=== PATIENT | female | born 1985 | race Caucasian/White ===

== ENCOUNTER 2017-01-11 15:58 | Emergency (ER) | payer BC, MEDICARE, OTHER ==
[~2017-01-11] VITALS: Ht 157.5 cm; Wt 60.3 kg
[~2017-01-11 15:58] MED LIST: AMPH10TA2 PO; AMPH20CA3 PO; BCPILLS PO
[2017-01-11 16:17] VITALS: PULSE 86; Ht 157.5 cm; Wt 60.3 kg
[2017-01-11] MEDS ORDERED: ACETAMINOPHEN 500 MG TAB PO STA (16:28)
[2017-01-11] MEDS ORDERED: MoRPHine SULFATE 4 MG/ML 1 ML CARP\\VIAL IV STA (16:28)
[2017-01-11] MEDS ORDERED: SODIUM CHLORIDE 0.9% 1000ML 1,000 ML IV STA (16:28)
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
[2017-01-11] MEDS ORDERED: OPTIRAY 320 IV PRN (16:45)
[2017-01-11 17:09] LABS: BASO % 0.2 %; BASO ABS # 0.03 K/uL (0-0.2); COMPLETE YES; EOS % 0.7 %; HEMATOCRIT 39.6 % (37-47); IG% 0.3 %; LYMPH % 18.2 %; LYMPH ABS # 2.25 K/uL (1.2-3.4); MEAN CORPUSCULAR HEMOGLOBIN 29.4 pg (25-34); MEAN CORPUSCULAR HGB CONC 34.6 g/dl (32-36); MEAN PLATELET VOLUME 10.7 fL (7.4-10.4); MONO % 4.4 %; NEUT % 76.2 %; PLATELET COUNT 300 K/uL (130-400); RED BLOOD COUNT 4.66 M/uL (4.2-5.4); WHITE BLOOD COUNT 12.36 K/uL (4.8-10.8)
[2017-01-11 17:24] LABS: INR 0.9 (0.9-1.1); PROTHROMBIN TIME (PATIENT) 9.9 SECONDS (9.0-12.0)
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
[2017-01-11 17:56] LABS: BUN/CREATININE RATIO 12.9 (10-20); CALCIUM 9.8 mg/dl (8.5-10.1); CREATININE 0.85 mg/dl (0.60-1.20); POTASSIUM 3.7 mmol/L (3.5-5.1)
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
[2017-01-11] MEDS ORDERED: KETOROLAC TROMETHAMINE 30 MG/ML VIAL IV STA (18:30)
[2017-01-11] MEDS ORDERED: TRAMADOL HCL 50 MG HOME PACK PO ONE (18:30)
[2017-01-11] MEDS ORDERED: TRAMADOL HCL 50 MG TAB PO STA (18:30)
[2017-01-11] MEDS ORDERED: TRAM-10 PO (18:33)
[2017-01-11 18:52] VITALS: BP 133/70; O2SAT 98
== END 2017-01-11 18:55 | disposition home or self-care (01) ==
LOC: EDBD 15:58 → C.EDA 15:59
DX: R07.9 Chest pain, unspecified (principal); V43.52XA Car driver injured in collision with other type car in traffic accident, initial encounter; Y92.488 Other paved roadways as the place of occurrence of the external cause; F90.9 Attention-deficit hyperactivity disorder, unspecified type; R00.0 Tachycardia, unspecified

== ENCOUNTER → 2017-01-26 | Outpatient (CLI) | payer OTHER, BC ==
[~2017-01-26] MED LIST changes: -AMPH10TA2 PO; -BCPILLS PO; +TRAM-10 PO
--- NOTE | 2017-01-26 19:39 | DIAGNOSTIC IMAGING REPORT ---
CHEST 2 VIEWS ROUTINE HISTORY: Atypical chest pain. COMPARISON: Chest 01/11/2017. FINDINGS: The lungs are clear. Cardiac silhouette is normal in size. No pleural effusions. No pneumothorax. IMPRESSION: No acute process. Electronically signed by: Hunter Mccabe M.D. 01/26/2017 7:37 PM Dictated Date/Time: 01/26/2017 7:36 PM
== END | disposition home or self-care (01) ==
LOC: C.RAD 19:13
PROVIDERS: ATTEND Family Medicine
DX: R07.9 Chest pain, unspecified (principal); V89.2XXD Person injured in unspecified motor-vehicle accident, traffic, subsequent encounter

== ENCOUNTER 2017-11-05 02:13 | Inpatient (IN) | payer BC ==
[~2017-11-05] VITALS: Ht 157.5 cm; Wt 77.6 kg
[~2017-11-05 02:13] MED LIST changes: -TRAM-10 PO
[2017-11-05] MEDS ORDERED: LACTATED RINGER'S 1000ML 1,000 ML IV PRN (06:14)
[2017-11-05] MEDS ORDERED: PENICILLIN G POTASSIUM IV 6 MU in DEXTROSE 5% 250ML 250 ML IV ONE (06:15)
[2017-11-05] MEDS ORDERED: BUTORPHANOL TARTRATE 1 MG/ML VIAL IV ONE (06:30)
[2017-11-05 06:32] VITALS: Ht 157.5 cm; Wt 77.6 kg
[2017-11-05] MEDS ORDERED: PRENTAB26 PO (06:32)
[2017-11-05] MEDS ORDERED: FERR1TAB23 (06:32)
[2017-11-05 06:34] LABS: HEMATOCRIT 39.3 % (37-47); HEMOGLOBIN 13.4 g/dL (12.0-16.0); MEAN CELL VOLUME 88.9 fL (80-100); MEAN CORPUSCULAR HEMOGLOBIN 30.3 pg (25-34); MEAN CORPUSCULAR HGB CONC 34.1 g/dl (32-36); MEAN PLATELET VOLUME 10.9 fL (7.4-10.4); PLATELET COUNT 239 K/uL (130-400); RED CELL DISTRIBUTION WIDTH CV 14.7 % (11.5-14.5); RED CELL DISTRIBUTION WIDTH SD 47.6 fL (36.4-46.3); WHITE BLOOD COUNT 11.13 K/uL (4.8-10.8)
[2017-11-05] MEDS: LACTATED RINGER'S 1000ML 1,000 ML IV SCH ×2 (06:57→12:49)
[2017-11-05] MEDS ORDERED: IV FLUIDS COMPLETED PRN (07:00)
[2017-11-05] MEDS: PENICILLIN G POTASSIUM IV 3 MU in DEXTROSE 5% 100ML 100 ML IV PRN ×2 (11:04→14:37)
[2017-11-05] MEDS ORDERED: BUPIVACAINE 0.25% 30 ML VIAL ONE (12:26)
[2017-11-05] MEDS ORDERED: FENTANYL CITRATE INJ 50 MCG/1 ML 2 ML VIAL ONE (12:26)
[2017-11-05] MEDS ORDERED: EpHEDrine SULFATE INJ 50 MG/ML AMP ONE (12:26)
[2017-11-05] MEDS ORDERED: FENTANYL 2MCG/ML ROPIV 1.25MG/ML 100ML BAG ONE (12:27)
[2017-11-05] MEDS ORDERED: LACTATED RINGER'S 1000ML 500 ML IV PRN ×2 (13:06→14:49)
[2017-11-05] MEDS ORDERED: NALOXONE HCL INJ 0.4 MG/1 ML VIAL/CARP IV PRN (13:15)
[2017-11-05] MEDS ORDERED: EpHEDrine SULFATE INJ 50 MG/ML AMP IV PRN (13:15)
[2017-11-05] MEDS ORDERED: FENTANYL 2MCG/ML ROPIV 1.25MG/ML 100ML BAG EPI PRN (13:15)
[2017-11-05] MEDS ORDERED: OXYTOCIN 30 UNITS/500ML NSS IV PRN ×2 (15:00→17:45)
[2017-11-05] MEDS ORDERED: OXYCODONE/ACETAMINOPHEN 5-325 TAB PO PRN (17:45)
[2017-11-05] MEDS ORDERED: ACETAMINOPHEN 325 MG TAB PO PRN (17:45)
[2017-11-05] MEDS ORDERED: SUPERCREAM 0.870 % 15GM JAR EXT PRN (17:45)
[2017-11-05] MEDS ORDERED: BENZOCAINE 20% AER SPR 82.5 GM CAN EXT PRN (17:45)
[2017-11-05] MEDS ORDERED: DIPHTHERIA/TETANUS/PERTUSSIS 0.5 ML SYR/VIAL IM. ONE (17:45)
[2017-11-05] MEDS ORDERED: LANOLIN OINT EXT PRN (17:45)
[2017-11-05] MEDS ORDERED: HYDROCORTISONE ACETATE 25 MG SUPP PR PRN (17:45)
--- NOTE | 2017-11-05 18:32 | Anesthesia Procedure Note ---
Anesthesia Epidural Removal Nt Date & Time Nov 05, 2017 at 18:32 Vital Signs Pain Intensity: 0.0 Notes Mental Status: alert / awake / arousable, participated in evaluation Nausea / Vomiting: adequately controlled Pain: adequately controlled Airway Patency, RR, SpO2: stable & adequate BP & HR: stable & adequate Hydration State: stable & adequate Neuraxial Anesthesia: was administered Anesthetic Complications: no major complications apparent, pt satisfied with anesthetic care Epidural: removed without complications, with tip intact
[2017-11-05] MEDS: IBUPROFEN 600 MG TAB PO PRN ×2 (19:10→23:39)
[2017-11-05 21:15] VITALS: BP 111/63; PULSE 98; TEMP 36.7
[2017-11-05] MEDS: DOCUSATE SODIUM 100 MG CAP PO SCH (21:53)
[2017-11-05 23:35] VITALS: BP 104/62; PULSE 93; TEMP 36.5
[2017-11-06] VITALS (7 sets, daily range): BP systolic 100–115; BP diastolic 59–66; PULSE 85–98; TEMP 36.3–36.8; O2SAT 98–99
[2017-11-06] MEDS: IBUPROFEN 600 MG TAB PO PRN ×2 (03:36→14:24)
--- NOTE | 2017-11-06 05:17 | DELIVERY SUMMARY ---
DATE OF OPERATION: 11/05/2017 DATE OF DELIVERY: 11/05/2017. TIME OF DELIVERY: 173. DELIVERY OF PLACENTA: 173. DELIVERY NOTE: The patient is a 31-year-old 3 para 2 at 40 weeks gestation who was admitted to labor and delivery on the morning of 11/05/2017 in active labor. On admission, she was found to be 4 cm, 78% effaced, and -2 station. Her care was uneventful. She is GBS positive and was given penicillin for GBS prophylaxis. Artificial rupture of membranes was performed at 1350 with a large amount of clear amniotic fluid. She received Pitocin for labor augmentation and reached complete dilation at 1727. Patient pushed to delivery. At 1736, she delivered a viable female in the left occiput anterior position to an intact perineum. The baby was delivered and placed on the patient's abdomen. Cord was clamped x2 and cut. Apgars were 8 at 1 minute and 9 at 5 minutes; please see nursing notes for further baby assessment. Cord blood was then obtained. Intact placenta with 3-vessel cord was delivered at 1739. Oxytocin infusion was then begun. The lower uterine segment and vagina was cleared of any blood clots and debris. Exploration of the perineum noted no laceration. Estimated blood loss was 300 mL. All sponge and instrument counts were found to be correct x2. Both patient and baby tolerated the delivery well and were in recovery with stable vital signs. I attest to the content of the Intraoperative Record and any orders documented therein. Any exception s are noted below.
[2017-11-06] MEDS: DOCUSATE SODIUM 100 MG CAP PO SCH ×2 (08:04→19:55)
[2017-11-06] MEDS: AMPHETAMINE ASP/SULF/DEXTRAMPH ER 20 MG CAP PO SCH (08:04)
[2017-11-06] MEDS: FERROUS SULFATE 325 MG TAB PO SCH (08:06)
[2017-11-06] MEDS: PRENATAL VITAMIN TAB PO SCH (08:07)
[2017-11-06 08:19] LABS: HEMATOCRIT 33.4 % (37-47); HEMOGLOBIN 11.4 g/dL (12.0-16.0)
--- NOTE | 2017-11-06 09:04 | OB/GYN Progress Note ---
SOLUTION DEVELOPER Progress Note Date of Service: Nov 06, 2017. Patient is seen and examined. She feels well, no complaints. Ambulating without dizziness Voiding without difficulty Tolerating regular diet with out N&V Bleeding is minimal No fever/ chills/ CP/ SOB/ N&V/ Leg pain Breast feeding without problems Date Time Temp Pulse Resp B/P (MAP) Pulse Ox O2 Delivery O2 Flow Rate FiO2 11/06/17 04:25 36.3 98 18 100/60 (73) 98 Room Air 11/05/17 23:35 Room Air 11/05/17 23:35 36.5 93 18 104/62 (76) Room Air 11/05/17 21:15 Room Air 11/05/17 21:15 36.7 98 18 111/63 (79) Room Air Last 24 Hours Test 11/06/17 07:48 Hemoglobin 11.4 g/dL Hematocrit 33.4 % PE: General: Alert, orientedx3, NAD Abd: soft, NT, fundus firm, below Umbilicus Perineum intact, Lochia rubra minimal Ext; NT, no edema AP: 31 yo s/p , ppd# 1 VSS Afebrile doing well Continue routine care All questions were answered D/C home tomorrow
--- NOTE | 2017-11-06 09:06 | Discharge Instructions ---
Discharge Instructions Date of Service Nov 06, 2017. Admission Reason for Admission: Check Labor Discharge Discharge Diagnosis / Problem: Discharge Goals Goal(s): Routine recovery after delivery Medications Continue Dispensed Medications: lansinoh, other Activity Recommendations Activity Limitations: as noted below ACTIVITY RECOMMENDATIONS: * Gradual return to full activity over the next 2-3 weeks. * No lifting - nothing heavier than baby over the next 2-3 weeks. * Do not engage in vigorous exercise, sexual activity or sports until cleared by your physician. * Do not drive or operate any motorized equipment until cleared by your physician. * You may shower/bathe daily. BREAST CARE: If you are not breast feeding: * Wear a supportive bra 24 hours a day for one to two weeks. * Avoid stimulating your breasts and nipples as much as possible during the first few weeks after delivery. * When taking a shower, have the warm water hit your back, not breasts. * When your breasts feel full, apply ice packs. Usually three to four times a day helps ease the discomfort. * Take a mild pain medication (Tylenol/Motrin) when you are uncomfortable. If breast feeding: * Use breast milk to lubricate nipples. Lansinoh cream may be used for sore nipples. You do not need to remove cream prior to breast feeding. If using a different brand of cream, check the label for directions regarding removal of cream prior to nursing. * Wear a supportive bra. * If having problems with breasts or breast feeding, call a oracle consultant or your health care provider. EPISIOTOMY CARE: After delivery, if you have an episiotomy (stitches), the following steps will ease discomfort and aid healing. * For the first 24 hours after delivery, place ice packs next to your episiotomy to help reduce swelling. * After the first 24 hour-period, sitz baths, either portable or in the tub, are suggested. A shower with a shower arm sprayed over the episiotomy may be comforting. * Arin care should be done after each voiding and bowel movement. Squirt warm water from a plastic bottle over the perineum (region of the body between the anus and urinary opening) and pat dry. * Use Dermoplast to ease discomfort. Shake container. [place] directly over the episiotomy. * Place a Tucks on a clean sanitary pad next to your episiotomy. OVER THE COUNTER MEDICATION: * For discomfort or pain, you may use Acetaminophen (Tylenol), Ibuprofen (Advil ), or Naproxen (Aleve) following the package directions. * For constipation you may use Colace following the package directions. SPECIAL CARE INSTRUCTIONS: When you are discharged from the hospital, it is important for you to follow the instructions listed below: * During the first week at home, you should be able to care for yourself and your baby. In addition, the usual light household activities are encouraged. * Limit your activities to the way you feel. Do not try to clean the house or move furniture. Be sensible. * If you actively engage in sports and have done so up until the time of your delivery, you may resume these activities as soon as you feel able. This may take up to one month or even longer. Use good judgment. * Continue to take your vitamins for at least six weeks after the of your baby. * Your diet need not be limited unless you were on a special diet before your delivery. Breast-feeding mothers need around 2500 calories per day and at least 64-80 ounces of fluid per day (8 to 10 glasses). * You should eat foods from the four major food groups. Crash diets or fad diets are to be avoided. Eating lean meats, fresh fruits and vegetables, low-fat dairy products, high fiber foods and a regular exercise program, will help you get back to your pre- weight without putting your health at risk. * Constipation is sometimes a problem after delivery. Take a mild laxative as needed. If breast feeding, Milk of Magnesia is acceptable to use. You may use a suppository or Fleets enema if no episiotomy. * A daily shower or tub bath is suggested. Be sure to thoroughly and gently dry the perineum. * A bloody vaginal discharge will usually continue until around four weeks post . A small amount of bleeding may continue for as long as six weeks. Vaginal discharge changes from the bright red bleeding after delivery to pink then brownish and finally yellowish-pink before becoming white and disappearing. * Bleeding may increase with activity. Your first period may come in 4-8 weeks. If you are breast feeding, your period may be delayed even longer. * Petrolia (sex) can begin whenever both you and your partner feel comfortable and do not have any form of genital infection. It is recommended that you wait until after your return appointment and discuss with your physician. If you have questions, please talk to your health care practitioner. A condom should be used to prevent infection and . * Foreplay, gentle intercourse and lubrication is very important the first several times to prevent pain. A water-based lubricant such as K-Y jelly or Astroglide may be used. * Tampons may be used six weeks after delivery. * Douching should be avoided for 6 weeks after delivery. * If you have RH negative blood and your baby is RH positive, you will receive RHOGAM by injection prior to discharge. The nurse will give you a card to keep with you that has the date and place that you received RHOGAM after delivery. * During your care, you had a Rubella screen done to check for the presence of rubella antibodies in your blood. If your test was negative, you will receive a Rubella vaccine prior to discharge. This vaccine may cause a fever, soreness at the injection site and flu-like symptoms. If these symptoms persist, notify your health care practitioner. is not advised for three months after a Rubella vaccine. There is a higher chance of having a baby with defects if conceived within three months of getting the vaccine. * If you were discharged 24 hours from delivery or before 48 hours: Visiting nurses will come to your home 48 hours after discharge to assess you and your baby. The visiting nurse will meet with you while you are in the hospital to arrange a time and get directions to your home. * Verbalizes understanding of car seat law as reviewed with patient nursing. * Car Seat hand-out given and reviewed with patient by nursing. * Shaken baby information reviewed with patient by nursing. Call you doctor if: * Heavy bleeding (saturating several pads an hour) or passing clots the size of your fist. * A fever >101 degrees F (38.3 degrees C) on two occasions four hours apart and/or chills. * Unusual pain in the pelvic or vaginal areas. * "Baby Blues" lasting longer than two weeks. If you have any questions or concerns, call your health care practitioner at . FOLLOW-UP VISIT: * Please call the office at to schedule a 6 week examination. It is important you keep this appointment. * It is important for you to make arrangements for either yearly or twice yearly check-ups thereafter. . Current Hospital Diet Patient's current hospital diet: Regular OB Diet Discharge Diet Recommended Diet: Regular Diet Pending Studies Studies pending at discharge: no Medical Emergencies . Who to Call and When: Medical Emergencies: If at any time you feel your situation is an emergency, please call 911 immediately. . Non-Emergent Contact Non-Emergency issues call your: Promotional Representative, Surgeon Call Non-Emergent contact if: you have a fever, temperature is above 100.5, your pain is not controlled, your pain is worsening . . "Provider Documentation" section prepared by Allyson José. .
[2017-11-06] MEDS ORDERED: BISACODYL 5 MG TABEC PO SCH (20:00)
[2017-11-07] MEDS: IBUPROFEN 600 MG TAB PO PRN ×2 (00:11→06:43)
[2017-11-07] MEDS ORDERED: BISACODYL 10 MG SUPP PR PRN (07:00)
[2017-11-07 07:07] LABS: HEMATOCRIT 33.5 % (37-47); HEMOGLOBIN 11.2 g/dL (12.0-16.0); MEAN CELL VOLUME 90.3 fL (80-100); MEAN CORPUSCULAR HEMOGLOBIN 30.2 pg (25-34); MEAN CORPUSCULAR HGB CONC 33.4 g/dl (32-36); MEAN PLATELET VOLUME 11.5 fL (7.4-10.4); PLATELET COUNT 230 K/uL (130-400); RED CELL DISTRIBUTION WIDTH CV 15.2 % (11.5-14.5); RED CELL DISTRIBUTION WIDTH SD 50.1 fL (36.4-46.3); WHITE BLOOD COUNT 9.05 K/uL (4.8-10.8)
[2017-11-07 07:25] VITALS: BP 105/69; PULSE 89; TEMP 36.4; O2SAT 98
[2017-11-07] MEDS: FERROUS SULFATE 325 MG TAB PO SCH (07:53)
[2017-11-07] MEDS: DOCUSATE SODIUM 100 MG CAP PO SCH (07:53)
[2017-11-07] MEDS: PRENATAL VITAMIN TAB PO SCH (07:53)
[2017-11-07] MEDS: AMPHETAMINE ASP/SULF/DEXTRAMPH ER 20 MG CAP PO SCH (07:54)
--- NOTE | 2017-11-07 09:56 | OB/GYN Progress Note ---
WEED INSPECTOR Progress Note Date of Service: Nov 07, 2017. Patient is seen and examined. She feels well, no complaints. Likes to go home. Ambulating without dizziness Voiding without difficulty Tolerating regular diet with out N&V Bleeding is minimal No fever/ chills/ CP/ SOB/ N&V/ Leg pain Breast feeding without problems Vital Signs Past 12 Hours Date Time Temp Pulse Resp B/P (MAP) Pulse Ox O2 Delivery O2 Flow Rate FiO2 11/07/17 07:25 98 Room Air 11/07/17 07:25 36.4 89 18 105/69 (81) 98 Room Air 11/06/17 23:35 36.6 95 18 115/59 (77) 98 Room Air Last 24 Hours Test 11/07/17 06:08 White Blood Count 9.05 K/uL Red Blood Count 3.71 M/uL Hemoglobin 11.2 g/dL Hematocrit 33.5 % Mean Corpuscular Volume 90.3 fL Mean Corpuscular Hemoglobin 30.2 pg Mean Corpuscular Hemoglobin Concent 33.4 g/dl RDW Standard Deviation 50.1 fL RDW Coefficient of Variation 15.2 % Platelet Count 230 K/uL Mean Platelet Volume 11.5 fL PE: General: Alert, orientedx3, NAD Abd: soft, NT, fundus firm, below Umbilicus Perineum intact, Lochia rubra minimal Ext; NT, no edema AP: 31 yo s/p , ppd# 2 VSS Afebrile doing well Continue routine care All questions were answered Discussed when to call D/C home , f/u in office
[2017-11-07] MEDS ORDERED: MISC-836 (09:57)
[2017-11-07 10:10] VITALS: BP_DIAS 69; PULSE 89; TEMP 36.4
== END 2017-11-07 10:35 | disposition home or self-care (01) | DRG 775 ==
LOC: C.OPB 02:13 → C.LD 02:13 → C.OPB 05:43 → OBSVTOIN 06:18 → C.OBG 20:20
PROVIDERS: ADMIT Obstetrics & Gynecology; ATTEND Obstetrics & Gynecology
PROC: 10E0XZZ Delivery of Products of Conception, External Approach (ICD-10-PCS; principal; 2017-11-05)
DX: O80 Encounter for full-term uncomplicated delivery (principal); Z3A.40 40 weeks gestation of pregnancy; Z37.0 Single live birth; Z22.330 Carrier of Group B streptococcus

== ENCOUNTER 2021-09-23 07:38 | Inpatient (IN) ==
[2021-09-23] MEDS ORDERED: OXYTOCIN 30 UNITS/500 ML BAG IV PRN ×3 (08:54→16:57)
[2021-09-23] MEDS: LACTATED RINGER'S 1,000 ML IV PRN ×3 (09:26→16:15)
--- NOTE | 2021-09-23 09:29 | History & Physical Report ---
Date of Service September 23, 2021 Assessment & Plan (1) Post-term , 40-42 weeks of gestation: Plan: 35 yo at 40.1 wks, scheduled IOL VSS Afebrile FHR reassuring GBS Neg Cervix favorable with irregular contractions Plan to admit, monitor, labs, Oxytocin per protocol All questions were answered. Admission and Anticipated Discharge Date Admission Date: September 23, 2021 History of Present Illness Primary Care Provider: Ksenia Greenberg DO Patient is a 35 yo at 40.1 wks, here for IOL for postdates No complaints Mild irregular ctxs, not painful, no LOF/VB +FM Her has been uncomplicated, denies any medical problems GBS neg COVID testing neg Allergies Allergy/AdvReac Type Severity Reaction Status Date / Time No Known Allergies Allergy Verified 09/23/21 08:54 Home Medications Medication Instructions Recorded Confirmed Type prenat.vits,rupal,bew-xyak-nwtxa 1 tab PO QAM 02/16/21 09/23/21 History Patient History Medical History Anxiety Surgical History S/P tonsillectomy Social History Smoking Status: Never smoker Hx Alcohol Use: No Hx Substance Use: No Preferred Language: Tunisian Communication Ability: Effective Orthopedically Impaired Teacher Required: No Beliefs That Will Affect Care: None marital status: Lex Goldman Current Living Situation: Family Current Living Situation Comment: and 3 children Other Information That Helps Us Care for You: No Feels Safe at Home: Yes Safety Concerns: Feels Safe At This Time Assistive Devices: None 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 No h/o STD's, no HSV/ Chlamydia/ GC Review of Systems as per Subjective / HPI Physical Exam Constitutional: well developed and well nourished Comfortable Gastrointestinal (Abdomen): normal bowel sounds, soft, nontender, no hepatosplenomegaly (gravid, graham 8 lb) Genitourinary: normal external appearance OB Exam Abdomen: + vertex Manual OB Exam: + cervical dilation 2 cm, + cervical effacement 50% and + station -2 OB Exam Monitor Tracing: + external uterine monitor used and + category I Results & Data ([facility]) Vital Signs (Past 12 Hours) Vital Signs Temp Pulse Resp BP 09/23/21 07:53 37.1 C 20 09/23/21 07:50 100 H 123/76
[2021-09-23 09:37] LABS: Hematocrit (blood only) 33.9 % (37-47); Mean Corpuscular Hemoglobin 27.2 pg (25-34); Mean Corpuscular Hgb Conc 32.4 g/dL (32-36); Mean Corpuscular Volume 83.7 fL (80-100); Mean Platelet Volume 11.4 fL (7.4-10.4); Platelet Count 344 K/uL (130-400); RDW Coefficient of Variation 13.9 % (11.5-14.5); Red Blood Count 4.05 M/uL (4.2-5.4); White Blood Count 8.31 K/uL (4.8-10.8)
--- NOTE | 2021-09-23 14:32 | Obstetrical Progress Note ---
Date of Service September 23, 2021 Assessment & Plan Admission and Anticipated Discharge Date Admission Date: September 23, 2021 Subjective Patient is reevaluated She has no complaints, contractions are not very painful for her VE; 3-4 cm/ 60%/ -2, tight amniotic bag, AROM'ed clear fluid FHR categ I Coleridge ctxs q 2-4 min, pitocin is at 16 miu/min Continue to monitor closely Epidural for [pain when she desires. Results & Data ([facility]) Vital Signs (Past 12 Hours) Vital Signs Temp Pulse Resp BP 09/23/21 14:25 94 H 133/84 09/23/21 13:01 36.8 C 88 20 115/65 09/23/21 11:37 96 H 110/65 09/23/21 10:36 88 115/76 09/23/21 09:27 103 H 119/75 09/23/21 07:53 37.1 C 20 09/23/21 07:50 100 H 123/76
[2021-09-23] MEDS ORDERED: ePHEDrine sulfate 50 MG/ML AMP ONE (14:34)
[2021-09-23] MEDS ORDERED: SODIUM CHLORIDE 0.9% INJ 10 ML VIAL ONE (14:34)
[2021-09-23] MEDS ORDERED: BUPIVACAINE 0.25% 30 ML VIAL ONE (14:34)
[2021-09-23] MEDS ORDERED: fentaNYL citrate 100 MCG/2 ML VIAL ONE (14:34)
[2021-09-23] MEDS ORDERED: fentaNYL 2MCG/ML ROPIVACAINE 1.25MG/ML 100 ML BAG EPI ONE (14:35)
--- NOTE | 2021-09-23 14:56 | Anesthesiology Consultation ---
Date of Service September 23, 2021 Assessment & Plan (1) Encounter for pre-operative examination: Chart Review Chart Review: Acceptable Risk for Surgery History Height/Weight Height: 5 ft 2 in Weight: 85.275 kg Allergies Allergy/AdvReac Type Severity Reaction Status Date / Time No Known Allergies Allergy Verified 09/23/21 08:54 Medications Home Medications Medication Instructions Recorded Confirmed Last Taken prenat.vits,rupal,vwv-upha-aesdf 1 tab PO QAM 02/16/21 09/23/21 09/22/21 Active Medications Generic Name Dose Route Start Last Admin Trade Name Freq PRN Reason Stop Dose Admin Lactated Ringer's 1,000 mls @ 150 mls/hr 09/23/21 08:54 09/23/21 14:45 Lr IV 09/25/21 08:53 999 mls/hr .[id number] PRN Administration L&D Protocol Protocol Oxytocin 30 units in 500 mls @ 16 mls/hr 09/23/21 09:07 09/23/21 13:30 Pitocin IV 09/25/21 09:06 0.96 units/hr .Q24H PRN 16 mls/hr Labor Induction/Augmentation Titration Protocol 0.96 UNITS/HR Past Medical History Medical History Anxiety Past Surgical History Surgical History S/P tonsillectomy Social History Smoking Status: Never smoker Hx Alcohol Use: No Hx Substance Use: No Physical Exam Vital Signs Last Vital Signs Temp 36.8 C 09/23/21 13:01 Pulse 94 H 09/23/21 14:25 Resp 20 09/23/21 13:01 BP 133/84 09/23/21 14:25 Testing Laboratory Results 09/23/21 09:01
[2021-09-23] MEDS ORDERED: ONDANSETRON INJ 2 MG/ML 2 ML VIAL IV PRN (15:36)
[2021-09-23] MEDS ORDERED: NALOXONE HCL 0.4 MG/1 ML VIAL/CARP IV PRN (15:36)
[2021-09-23] MEDS ORDERED: NALOXONE HCL 1 MG in SODIUM CHLORIDE 0.9% 1000ML 1,000 ML IV PRN (15:36)
[2021-09-23] MEDS ORDERED: ePHEDrine sulfate 50 MG/ML AMP IV PRN (15:36)
[2021-09-23] MEDS ORDERED: fentaNYL 2MCG/ML ROPIVACAINE 1.25MG/ML 100 ML BAG EPI PRN (15:36)
[2021-09-23] MEDS ORDERED: DIPHTHERIA/TETANUS/PERTUSSIS 0.5 ML SYR/VIAL IM ONE (16:57)
[2021-09-23] MEDS ORDERED: bisacodyL 10 MG SUPP PR PRN (16:57)
[2021-09-23] MEDS ORDERED: BENZOCAINE 20% AER SPR 82.5 GM CAN EXT PRN (16:57)
[2021-09-23] MEDS ORDERED: HYDROCORTISONE ACETATE 25 MG SUPP PR PRN (16:57)
[2021-09-23] MEDS ORDERED: MEASLES, MUMPS & RUBELLA VIRUS VIAL SQ ONE (16:57)
--- NOTE | 2021-09-23 17:05 | Delivery Summary ---
Vaginal Delivery Summary Date of Service September 23, 2021 Vaginal Delivery Summary Patient was found to be fully dilated and desire to push. She pushed through 3 contractions and delivered the head without difficulty. Turtle neck sign was noted. Shoulder dystocia was called to the nursing team who lowered the patient's bed all the way down, applied hyperflexion of legs with Dottie maneuver. Then with the suprapubic pressure and my right hand in the posterior vagina, the posterior shoulder ( right) was delivered without difficulty. Whole body was delivered without difficulty within 30 seconds. Baby was handed off to the mother where mouth and nose were suctioned. The baby was vigorously moving and crying at that point. The cord was clamped x2 and cut at 1 minute delay. He was taking by the nursery team. Vagina and perineum were checked for lacerations. There was a very small first- degree skin laceration at the posterior fourchette at 6 o'clock position which was oozing small blood. It was repaired with 3-0 Vicryl with inuerq-py-yeuru stitch x1 and it was hemostatic. The vagina and perineum were intact. Then the placenta was found to be the vagina, delivered spontaneously as intact and complete. Uterus was explored and found to be empty, the lower segment was cleared of all clots and debris's, fundus was firm and EBL was 100 mL. Mom and baby tolerated procedure well. The sponge needle instrument count was correct x2. Baby was a viable male , Apgars were 8/9 and weight is pending. No complications happened and I was present during whole procedure.
--- NOTE | 2021-09-23 17:22 | Anesthesia Procedure Note ---
Date of Service September 23, 2021 Anesthesia Post Epidural Note Vital Signs Vital Signs: Temp Pulse Resp BP Pulse Ox 36.8 C 110 H 20 116/56 L 95 09/23/21 15:35 09/23/21 17:08 09/23/21 15:35 09/23/21 17:08 09/23/21 16:43 Pain Intensity Bilateral Abdomen: Pain Intensity: 0 Notes Mental Status: alert / awake / arousable and participated in evaluation Nausea / Vomiting: adequately controlled Pain: adequately controlled Airway Patency, RR, SpO2: stable & adequate BP & HR: stable & adequate Hydration State: stable & adequate Neuraxial Anesthesia: was administered and sensory block is resolving Anesthetic Complications: no major complications apparent Epidural: Removed without complications and With tip intact
[2021-09-23] MEDS: IBUPROFEN 600 MG TAB PO PRN ×2 (18:07→22:20)
[2021-09-23] MEDS: DOCUSATE SODIUM 100 MG CAP PO SCH (20:24)
[2021-09-24] MEDS: ACETAMINOPHEN 325 MG TAB PO PRN ×2 (01:22→07:48)
[2021-09-24] MEDS: IBUPROFEN 600 MG TAB PO PRN ×3 (05:12→15:26)
[2021-09-24 06:48] LABS: Hematocrit (blood only) 30.1 % (37-47); Hemoglobin 9.9 g/dL (12.0-16.0); Mean Corpuscular Hemoglobin 27.5 pg (25-34); Mean Corpuscular Hgb Conc 32.9 g/dL (32-36); Mean Corpuscular Volume 83.6 fL (80-100); Mean Platelet Volume 10.9 fL (7.4-10.4); Platelet Count 292 K/uL (130-400); RDW Standard Deviation 42.6 fL (36.4-46.3); White Blood Count 10.01 K/uL (4.8-10.8)
[2021-09-24] MEDS: DOCUSATE SODIUM 100 MG CAP PO SCH (07:48)
[2021-09-24] MEDS ORDERED: FERROUS SULFATE 325 MG TAB PO SCH (08:00)
[2021-09-24] MEDS ORDERED: PRENATAL VITAMIN 1 TAB PO SCH (08:00)
--- NOTE | 2021-09-24 12:26 | Obstetrical Progress Note ---
Date of Service September 24, 2021 Assessment & Plan (1) Normal course: PPD #1 Pt doing well No complaints disch home this PM Results & Data ([facility]) Vital Signs (Past 12 Hours) Vital Signs Temp Pulse Resp BP Pulse Ox 09/24/21 12:00 36.8 C 95 H 18 107/68 98 09/24/21 07:39 36.8 C 90 14 97/67 L 99
[2021-09-24] MEDS ORDERED: HYDROCORTISONE 1% CRM 30 GM TUBE EXT PRN (17:03)
[2021-09-24] MEDS ORDERED: bisacodyL 5 MG TABEC PO SCH (20:00)
== END 2021-09-24 17:55 | disposition home or self-care (01) | DRG 807 ==
LOC: 4S1 07:38 → 4E2 19:41

== ENCOUNTER 2024-08-04 06:25 | Observation (INO) ==
--- NOTE | 2024-07-21 10:01 | Anesthesiology Consultation ---
Date of Service July 21, 2024 Assessment & Plan (1) Encounter for pre-operative examination: - awaiting T&S 24-48 hours before surgery. - h/o abnormal T&S. I spoke with Miesha in blood bank who advised patient have repeat T&S 24-48 hours before surgery, advised ideally evening of 08/02 or morning of 08/03. If unable to complete prior to day of surgery, will need to arrive 3 hours vehicle operator technician of surgery. I spoke with patient who states she can come into [facility] evening of 08/02 before 7 pm or morning of 08/03. Order placed. - check urine test STAT am DOS. - Per patient safety manager on 07/21/24: Currently on antibiotic for sinus infection with last dose being 07/23/24. I spoke with patient who states she is feeling well. I advised if persistent symptoms to contact PAT. Chart Review Chart Review: Pending: Refer to Additional Notes / Consult section and Patient NOT seen in Pre Admission Testing History Surgery Operation Date: 05/19/24 12:10 Proposed Procedures p Total Laparoscopic Hysterectomy, Possible Right Cystectomy and Cystoscopy - Kaushal Varma MD Operation Date: 08/04/24 08:05 Proposed Procedures p Total Laparoscopic Hysterectomy, Bilateral Salpingectomy and Cystoscopy, Possible Laparotomy as any Indicated Procedure - Kaushal Varma MD Height/Weight Height: 5 ft 2 in Weight: 68.039 kg Allergies Allergy/AdvReac Type Severity Reaction Status Date / Time nickel Allergy Unknown suspected Verified 07/21/24 09:03 nickel: Rash Medications Home Medications Medication Instructions Recorded Confirmed Last Taken azithromycin 500 mg tablet 0 mg PO UD 07/21/24 07/21/24 Unknown dextroamphetamine-amphetamine 30 30 mg PO QAM 07/21/24 07/21/24 Unknown mg tablet ibuprofen 600 mg tablet 600 mg PO UD PRN Pain 07/21/24 07/21/24 Unknown multivitamin 1 tab PO DAILY 07/21/24 07/21/24 Unknown Past Medical History Medical History ADD (attention deficit disorder) Anxiety Heartburn on occ/diet controlled. History of anemia while History of anesthesia reaction with epidural hx for vaginal , blood pressure would drop. History of COVID-2020, no hx hospitalization. Low blood pressure reading bp runs on the lower side 100/62 average per pt. Migraines Occipital neuralgia not that pt aware of Past Surgical History Surgical History History of gynecologic surgery (02/2022) both fallopian tubes removed - shawn ramírez. S/P tonsillectomy Story teeth removed hx Social History Smoking Status: Never smoker Do You Dip or Chew Tobacco: No Hx Substance Use: No substance use type: does not use
[2024-08-04] MEDS: LACTATED RINGER'S 1,000 ML IV SCH (06:53)
[2024-08-04] MEDS: metroNIDAZOLE 500 MG/100 ML BAG IV SCH (06:53)
[2024-08-04] MEDS: LR 15ML/HR IV SCH (06:53)
[2024-08-04] MEDS ORDERED: LIDOCAINE 2% 2 ML VIAL/AMP(20MG/ML) INFIL ONE (08:02)
[2024-08-04] MEDS ORDERED: DEXAMETHASONE SOD INJ 4 MG/ML VIAL ONE (08:02)
[2024-08-04] MEDS ORDERED: MIDAZOLAM HCL 1 MG/ML 2ML VIAL ONE (08:02)
[2024-08-04] MEDS ORDERED: PROPOFOL IV EMULSION 10 MG/ML 20 ML VIAL IV ONE (08:02)
[2024-08-04] MEDS ORDERED: ONDANSETRON INJ 2 MG/ML 2 ML VIAL ONE (08:02)
[2024-08-04] MEDS ORDERED: fentaNYL citrate PF 100 MCG/2 ML VIAL ONE ×2 (08:03→10:41)
[2024-08-04] MEDS ORDERED: DROPERIDOL 5 MG/2 ML VIAL ONE (08:03)
--- NOTE | 2024-08-04 08:03 | History & Physical Bridge Note ---
Date of Service August 04, 2024 History & Physical Bridge Note I have examined the patient, reviewed the History & Physical and in the interval since the performance of the History & Physical I have noted the following changes of clinical significance: no changes noted
[2024-08-04] MEDS ORDERED: ROCURONIUM BROMIDE 10 MG/ML 5 ML VIAL IV ONE (08:04)
[2024-08-04] MEDS ORDERED: KETOROLAC 30 MG/ML VIAL IV PRN ×2 (08:15→11:32)
[2024-08-04] MEDS ORDERED: ATROPINE SULFATE 0.1 MG/ML 10ML SYR IV PRN (08:15)
[2024-08-04] MEDS ORDERED: PROMETHAZINE HCL 6.25 MG in SODIUM CHLORIDE 0.9% 50 ML IV PRN (08:15)
[2024-08-04] MEDS: ceFAZolin 2000MG 2,000 MG/15 ML SYR IV SCH (08:55)
[2024-08-04] MEDS ORDERED: PHENYLEPHRINE 100MCG/ML 5ML SYR ONE (09:29)
[2024-08-04] MEDS ORDERED: METHYLENE BLUE 0.5% 10 ML VIAL ONE (10:57)
[2024-08-04] MEDS ORDERED: SUGAMMADEX SODIUM 200 MG/2 ML VIAL IV ONE (11:06)
[2024-08-04] MEDS: BUPIVACAINE/EPINEPHRINE 0.5% MPF 1:200,000 30 ML VIAL ONE (11:07)
[2024-08-04] MEDS: HYDROmorphone INJ 1 MG/ML SYRINGE IV PRN (11:31)
[2024-08-04] MEDS ORDERED: MEPERIDINE HCL 25 MG/ML CARP/VIAL IV PRN (11:32)
[2024-08-04] MEDS ORDERED: PROMETHAZINE 12.5 MG/50.5 ML BAG IV PRN (11:32)
[2024-08-04] MEDS ORDERED: oxyCODONE/ACETAMINOPHEN 5mg/325mg TAB PO PRN (11:32)
[2024-08-04] MEDS ORDERED: bisacodyL 10 MG SUPP PR PRN (11:32)
[2024-08-04] MEDS ORDERED: ZOLPIDEM TARTRATE 5 MG TAB PO PRN (11:32)
[2024-08-04] MEDS ORDERED: MAGNESIUM HYDROXIDE SUSP 30 ML UDC PO PRN (11:32)
--- NOTE | 2024-08-04 11:32 | Operative Report ---
Post Operative Report Pre & Post Diagnosis Operation Date: 08/04/24 08:00 Pre-Op Diagnosis: Chronic Pelvic Pain, suspected adenomyosis Post-Op Diagnosis: Chronic Pelvic Pain, suspected adenomyosis I identified the patient and participated in the time-out.: Yes Procedure Operation Date: 08/04/24 08:00 Actual Procedures p Total Laparoscopic Hysterectomy, Bilateral Salpingectomy and Cystoscopy(Not Applicable) - Kaushal Varma MD Surgeon Kaushal Varma MD Poured Concrete Wall Technician dr jorge Estimated Blood Loss 5 Findings Consistent with Post-Op Diagnosis Normal female escutcheon no lesions in the vagina or vulva. Hysteroscopic findings showed uterus of about 12 weeks size both ovaries appear grossly normal patient is a previous status post salpingectomy. Both ureters appendix were identified and appear grossly normal. Bladder appeared grossly normal as well bowel was seen in the bladder during cystoscopy. No masses or lesions seen in the bladder both ureters were seen effluxed urine. Fluids IVF: 1100 EBL: 5 mL Urine: 400 mL Specimens Uterus with cervix. Drains None Anesthesia Type General Complications None Indications Chronic pelvic pain unresponsive to medical therapy. Suspected adenomyosis. Description of Procedure FINDINGS: DESCRIPTION OF PROCEDURE: The patient was prepped and draped in normal sterile fashion in the dorsal lithotomy position. Salomon catheter was placed without difficulty. An Advincula uterine manipulator was placed in the uterus to help with colpotomy. Attention was paid to the abdominal part of the procedure where a supraumbilical incision was made and carried down to the fascia. Shmuel was used to grab the fascia. Veress needle was introduced into the abdomen at a 45-degree angle while tenting up the abdomen. Intra-abdominal placement was confirmed with a water-filled syringe. A water drop and suction test was performed. The abdomen was insufflated with CO2 gas. The Veress needle was removed and a 5 mm non bladed trocar was attached to a laparoscope was introduced into the abdomen under direct visualization. This was a non bladed trocar. Once inside the abdomen, laparoscope was repositioned. Inspection of the abdomen shows the findings as dictated above. Three more accessory ports were placed, two 5 mm accessory ports were placed in the lower abdomen on the contralateral side, in addition, an 11 mm trocar was placed on the left upper quadrant. General inspection of the abdomen and pelvis was performed as dictated above. T here was no adhesion in abdomen or pelvis. Patient is status post bilateral salpingectomy. Both ovaries however appear grossly normal. The ureters, uterosacrals, bowels were examined and identified. LigaSure was passed through the left accessory port. The fallopian tube was identified and grabbed 4 cm from the cornua of the uterus with the LigaSure and transected. This was followed by opening of the left anterior leaf of the broad ligament. This allowed for fenestration of the posterior left broad ligament. The mid-section of the left fallopian tube, utero-ovarian and meso-ovarian ped icles were transected as well. Same procedure was performed on the contralateral side. The anterior broad ligament dissection was carried to the mid-section of the vesicouterine peritoneum over the bladder using the Harmonic scalpel. Same procedure was carried out on the contralateral side. The posterior broad ligament peritoneum was carefully dissected also from both sides over the uterosacral arch in order to displace the ureters laterally. Using traction and countertraction, the [place] retractor and irrigation probe was used to further dissect the bladder off the lower segment of the uterus. Bladder pillars and pubovesical fascia was dissected as well. Harmonic scalpel was used to obtain hemostasis where needed. Uterine manipulator was now palpable over the vaginal tissue. The right uterine pedicles were skeletonized and coagulated with the LigaSure. Good hemostasis was obtained. Same procedure was performed on the contralateral side. Cardinal ligaments were transected on both sides. Once good hemostasis was obtained, colpotomy was performed using the LigaSure hook from both sides. Uterus was removed through the vagina while still attached to the uterine manipulator. The bulb was attached to the uterine manipulator was reinserted into the vagina to establish pneumoperitoneum. EndoStitch closure device was passed through the 11 mm port on the left. Using the [place] grasper for traction, colpotomy closure was performed. The uterosacral ligaments incorporated into the closure in order to decrease the risk of prolapse. Lapro ties were used with the EndoStitch. The 11-mm trocar site was closed with a Chucho-Carpenter under direct visualization. Attention was paid to the cystoscopy part of the procedure where a cystoscope was introduced into the bladder. There are no sutures seen in the bladder. There were no gross blood seen in the bladder as well. The bubble sign is noted showing the bladder was a close cavity. Both ureters were seen and there was efflux from both uterus. The skin incisions are closed with Dermabond, except for the 11-mm trocar site, which was closed with 4-0 Monocryl. Inspection of the vagina shows the vaginal cuff was intact. All instruments were removed from the vagina and the bladder and accounted for x2 patient is sent to recovery room in stable condition Poured Concrete Wall Technician was necessary for retraction and manipulation of instruments in order to provide for a safe operation I attest to the content of the Intraoperative Record and any orders documented therein. Any exceptions are noted below.
--- NOTE | 2024-08-04 12:38 | Anesthesiology Progress Note ---
Date of Service August 04, 2024 Anesthesia Post Procedure Vital Signs Vital Signs: Temp Pulse Resp BP Pulse Ox O2 Del Method O2 Flow Rate 08/04/24 12:35 89 13 98/54 L 95 Room Air 08/04/24 12:25 104 H 19 94/51 L 99 Room Air 08/04/24 12:15 36.4 C L 97 H 19 95/51 L 99 Room Air 08/04/24 12:10 101/54 L 08/04/24 12:05 103 H 17 97/60 L 96 Room Air 08/04/24 11:55 103 H 21 107/59 L 99 Oxymask 2 08/04/24 11:45 98 H 12 111/59 L 100 Oxymask 7 08/04/24 11:35 98 H 16 107/64 100 Oxymask 7 08/04/24 11:27 37 C 114 H 19 119/61 100 Oxymask 7 08/04/24 06:44 37 C 91 H 20 118/73 99 Room Air Pain Intensity Abdomen: Pain Intensity: 4 Right Arm: Pain Intensity: 4 Transfer of Care Handoff Completed per policy Notes Mental Status: alert / awake / arousable Patient Amnestic to Procedure: Yes Nausea / Vomiting: adequately controlled Pain: adequately controlled Airway Patency, RR, SpO2: stable & adequate BP & HR: stable & adequate Hydration State: stable & adequate Anesthetic Complications: no major complications apparent Notes: pt experiencing some numbness in arm (arms were tucked) - starting to improve while in PACU
[2024-08-04] MEDS: IBUPROFEN 600 MG TAB PO PRN (13:47)
[2024-08-04] MEDS: ACETAMINOPHEN 325 MG TAB PO PRN (14:59)
[2024-08-04] MEDS: SIMETHICONE 80 MG CHEW PO PRN (15:19)
[2024-08-04] MEDS: ONDANSETRON INJ 2 MG/ML 2 ML VIAL IV PRN (18:02)
[2024-08-04] MEDS: ONDANSETRON 4 MG OD TAB PO PRN (18:08)
[2024-08-04] MEDS: DOCUSATE SODIUM 100 MG CAP PO SCH (19:43)
[2024-08-05 07:38] LABS: Basophils # (auto) 0.02 K/uL (0.00-0.20); Basophils % (auto) 0.2 %; Eosinophils # (auto) 0.05 K/uL (0.00-0.50); Eosinophils % (auto) 0.6 %; Hematocrit (blood only) 32.6 % (37.0-47.0); Hemoglobin 10.8 g/dl (12.0-16.0); Immature Granulocytes # (auto) 0.02 K/uL (0.01-0.20); Immature Granulocytes % (auto) 0.2 %; Lymphocytes % (auto) 38.4 %; Mean Corpuscular Hemoglobin 28.6 pg (25.0-34.0); Mean Corpuscular Hgb Conc 33.1 g/dL (32.0-36.0); Mean Corpuscular Volume 86.2 fL (80.0-100.0); Mean Platelet Volume 10.8 fL (9.4-12.4); Monocytes # (auto) 0.51 K/uL (0.11-0.59); Monocytes % (auto) 5.9 %; Neutrophils # (auto) 4.69 K/uL (1.40-6.50); Neutrophils % (auto) 54.7 %; Platelet Count 289 K/uL (130-400); RDW Coefficient of Variation 13.7 % (11.5-14.5); RDW Standard Deviation 42.5 fL (36.4-46.3); Red Blood Count 3.78 M/uL (4.20-5.40); White Blood Count 8.59 K/ul (4.8-10.8)
[2024-08-05 07:55] LABS: Calcium 8.2 mg/dl (8.6-10.3); Potassium 3.2 mmol/L (3.5-5.1)
--- NOTE | 2024-08-05 11:42 | Obstetrical Progress Note ---
Date of Service August 05, 2024 Assessment & Plan (1) Postop check: POD #1 pt doing well stable vitals disch home with instructions Plan d/c home PM Physical Exam Constitutional WD/WN, vitals as above Eyes PERRL, conjunctivae normal, anicteric sclerae ENMT external ear and nose normal, oropharynx normal Neck trachea midline, no thyromegaly Respiratory normal respiratory effort, lungs clear to auscultation Cardiovascular RRR, no murmur, no edema Chest (Breasts) normal inspection/palpation of breasts Gastrointestinal (Abdomen) normal bowel sounds, soft, nontender, no hepatosplenomegaly Musculoskeletal no cyanosis or clubbing, extremities motor strength 5/5 Skin + incision (Incision clean,dry and intact) Neurologic patellar DTR's 2+ bilat, sensation intact Psychiatric A+Ox3, euthymic affect Genitourinary no vaginal lesions, no adnexal mass Lymphatic no cervical or axillary lymphadenopathy Results & Data Vital Signs (Past 12 Hours) Vital Signs Temp Pulse Resp BP Pulse Ox O2 Del Method 08/05/24 04:00 36.9 C 88 16 112/64 97 Room Air 08/05/24 00:47 37.0 C 87 14 99/51 L 98 Room Air
--- NOTE | 2024-08-05 11:46 | Discharge Summary ---
Date of Service August 05, 2024 Admission HPI Per Admitting Provider Patient is a 38-year-old status post adenomyosis. Patient underwent total laparoscopic hysterectomy and cystoscopy on 08/04/2024. Surgery was unremarkable details of surgery and the surgical note. Today's postop day 1 patient is doing well meeting all milestones. Patient is discharged home today in stable condition instructions for discharge have been reviewed with patient. Patient will follow-up in office for postop care. Discharge Data Procedures Performed Operation Date: 08/04/24 08:00 Actual Procedures p Total Laparoscopic Hysterectomy, Bilateral Salpingectomy and(Not Applicable) - Kaushal Varma MD s Cystoscopy(Not Applicable) - Kaushal Varma MD Hospital Course (1) Postop check: Plan Post op course was unremarkable and pt is discharges home in stable condition. Discharge instructions including medications,diet, activity and follow up appointments are reviewed with pt.
[2024-08-05] MEDS: oxyCODONE/ACETAMINOPHEN 5mg/325mg TAB PO PRN (15:46)
[2024-08-05 15:57] VITALS: BP 100/59; RESP 18; TEMP 98.1; O2SAT 98
[2024-08-05] MEDS: ONDANSETRON 4 MG OD TAB ONE (17:15)
[2024-08-05 19:19] VITALS: PULSE 88
== END 2024-08-05 18:45 | disposition home or self-care (01) | DRG 743 ==
LOC: ASU 06:25 → INTOOBSV 11:48 → 4E1 11:48